=== PATIENT | male | born 1985 | race African-American/Black ===

== ENCOUNTER 2021-04-23 14:20 | Emergency (ER) | payer BC, MEDICAID ==
[~2021-04-23] VITALS: Ht 177.8 cm; Wt 115.0 kg
[~2021-04-23 14:20] MED LIST: IBUP-2030; PROAIR HFA 90 MCG INHALER
[2021-04-23] MEDS ORDERED: IBUPROFEN 600MG TABLET PO STA (15:28)
[2021-04-23] MEDS ORDERED: IBUP-2029 PO (17:01)
[2021-04-23 17:18] VITALS: BP 145/89
== END 2021-04-23 17:20 | disposition home or self-care (01) ==
LOC: ER 14:20
DX: M25.511 Pain in right shoulder (principal); M25.551 Pain in right hip; J45.909 Unspecified asthma, uncomplicated; V03.90XA Pedestrian on foot injured in collision with car, pick-up truck or van, unspecified whether traffic or nontraffic accident, initial encounter; Y93.89 Activity, other specified; Y92.9 Unspecified place or not applicable
CPT/HCPCS: 73030; 73502; 99284